=== PATIENT | female | born 1995 | race Caucasian/White ===

== ENCOUNTER 2017-03-11 05:03 | Emergency (ER) | payer SELFPAY ==
[~2017-03-11] VITALS: Ht 170.2 cm; Wt 77.6 kg
[2017-03-11] MEDS ORDERED: ONDANSETRON 2MG/ML, 2ML ONE (05:27)
[2017-03-11] MEDS ORDERED: MORPHINE SULFATE 4 MG/ML, 1ML ONE (05:27)
[2017-03-11] MEDS ORDERED: MORPHINE SULFATE 4 MG/ML, 1ML IVPush PRN (05:30)
[2017-03-11] MEDS ORDERED: SODIUM CHLORIDE FLUSH 10ML SYR IVF ONE (05:30)
[2017-03-11] MEDS ORDERED: SODIUM CHLORIDE 0.9% 1,000ML IVBOLUS ONE (05:30)
[2017-03-11] MEDS ORDERED: ONDANSETRON 2MG/ML, 2ML IVPush ONE (05:30)
[2017-03-11 05:47] LABS: BLOOD UREA NITROGEN 4 mg/dL (7-18)
[2017-03-11] MEDS ORDERED: POTASSIUM CHLORIDE 20 MEQ TAB.ER.PRT ONE (06:24)
[2017-03-11] MEDS ORDERED: NS + 40MEQ KCL 1,000 ML IV ONE ×2 (06:24→06:30)
[2017-03-11] MEDS ORDERED: POTASSIUM CHLORIDE 20 MEQ TAB.ER.PRT PO ONE (06:30)
[2017-03-11] MEDS ORDERED: ACETAMINOPHEN 325 MG TABLET PO ONE (09:00)
[2017-03-11] MEDS ORDERED: ACETAMINOPHEN 325 MG TABLET ONE (09:03)
[2017-03-11 10:45] VITALS: BP 101/53
== END 2017-03-11 11:15 | disposition home or self-care (01) ==
LOC: ED 08:00
DX: O23.42 Unspecified infection of urinary tract in pregnancy, second trimester (principal); N30.90 Cystitis, unspecified without hematuria; Z3A.24 24 weeks gestation of pregnancy
CPT/HCPCS: 36415; 76805; 80048; 81001; 82040; 84702; 84703; 85025; 86901; 87086; 96361; 96374; 96375; 99285; J2405; J3480; J7030